=== PATIENT | female | born 1985 | race Caucasian/White ===

== ENCOUNTER 2021-12-06 20:26 | Emergency (ER) | payer OTHER, SELFPAY ==
[2021-12-06 20:30] VITALS: BP 118/91; PULSE 95; RESP 16; TEMP 36.9; O2SAT 100
--- NOTE | 2021-12-06 21:42 | ED.SKABFB ---
HPI - Skin/Abscess/Foreign Bdy General Chief complaint: Skin/Abscess/Foreign Body Stated complaint: skin infection Time Seen by Provider: 12/06/21 20:40 History of Present Illness HPI narrative: 36-year-old female presents the emergency room for evaluation of multiple abscesses that have been present for 4 days. Patient states she used her boyfriend's razor to shave her eyebrows. Patient also used the razor to shave her genitalia, where another abscess is located. Patient states that she attempted to open up the abscesses on her face, which led them to get bigger. States the swelling to her left eye has caused her right eye to close. Related Data Allergies Allergy/AdvReac Type Severity Reaction Status Date / Time Sulfa (Sulfonamide Allergy Unknown Other Verified 01/18/18 17:29 Antibiotics) Review of Systems Review of Systems: CONSTITUTIONAL: Denies fever, chills, or sweats. EYES: Denies visual changes, redness, or discharge. ENT: Denies rhinorrhea, congestion, sore throat, or otalgia. CARDIOVASCULAR: Denies chest pain, palpitations, or edema. RESPIRATORY: Denies cough or dyspnea. GASTROINTESTINAL: Denies abdominal pain, nausea, vomiting, or diarrhea. GENITOURINARY: Denies dysuria or hematuria. SKIN: Reports abscesses to bilateral eyebrows, left inner thigh and genital region MUSCULOSKELETAL: Denies back pain, joint pain, or myalgia. NEUROLOGIC: Denies headache, numbness, dizziness, or weakness. PSYCHIATRIC: Denies anxiety or depression. Exam Narrative: GENERAL: Well-appearing, well-nourished, no physical limitations, and in no acute distress. HEAD: Normocephalic, atraumatic. EYES: Conjunctivae normal, PERRLA and EOMI. ENT: External nose normal, Nares clear, no rhinorrhea or epistaxis. Mucous membranes moist. Oropharynx without tonsillar hypertrophy exudate or other lesions. External ears normal, bilateral TMs normal bilaterally NECK: Supple. No meningeal signs. No adenopathy or masses. No carotid bruits or JVD CHEST: Clear to auscultation. No respiratory distress. No wheezes rales or rhonchi. No tenderness. HEART: Regular rate and rhythm. No murmur heard. Normal peripheral pulses. EXTREMITIES: Normal range of motion. No edema. No clubbing or cyanosis SKIN: Abscess noted to right brow with surrounding erythema mild soft tissue swelling, draining abscess to left brow with significant soft tissue swelling to the periorbital surface. Draining abscesses noted to the left inner thigh and lower back NEURO: No focal deficits. Alert and oriented x3. MAEW. CN's II-XI intact bilaterally, normal gait PSYCH: Cooperative. Normal mood and affect. Course Vital Signs Vital signs: Vital Signs Temperature 36.9 C 12/06/21 20:30 Pulse Rate 95 12/06/21 20:30 Respiratory Rate 16 12/06/21 20:30 Blood Pressure 118/91 H 12/06/21 20:30 Pulse Oximetry 100 12/06/21 20:30 Oxygen Delivery Room Air 12/06/21 20:30 Temperature 36.9 C 12/06/21 20:30 Pulse Rate 95 12/06/21 20:30 Respiratory Rate 16 12/06/21 20:30 Blood Pressure 118/91 H 12/06/21 20:30 Pulse Oximetry 100 12/06/21 20:30 Oxygen Delivery Room Air 12/06/21 20:30 MDM - Skin/Abscess/Foreign Bdy Lab Data Result diagrams: 12/06/21 21:46 Labs: Lab Results 12/06/21 Range/Units 21:46 WBC 6.8 (4.5-10.0) K/mm3 RBC 4.67 (4.2-5.4) M/mm3 Hgb 13.2 (12.0-15.0) g/dL Hct 40.0 (37.0-47.0) % MCV 85.7 (80-100) fl MCH 28.3 (26-34) pg MCHC 33.0 (32-36) g/dl RDW 13.6 (11.5-14.5) % Plt Count 136 L (150-375) k/mm3 MPV 12.7 H (7.4-10.4) fl Immature Gran % (Auto) 0.3 (0-0.5) % Neut % (Auto) 65.2 (45.5-73.1) % Lymph % (Auto) 25.8 (18.3-44.2) % [place] % (Auto) 7.2 (2.6-8.5) % Eos % (Auto) 0.9 (0-4.4) % Baso % (Auto) 0.6 (0.2-1.2) % Lymph # (Auto) 1.75 (0.9-3.2) K/mm3 [place] # (Auto) 0.5 (0.1-0.6) K/mm3 Eos # (Auto) 0.1 (0-0.3) K/mm3 Baso # (Auto) 0.0 (0.0-0.1) K/mm3 Abs Immat G
[2021-12-06 21:54] LABS: Basophils Percent Auto 0.6 % (0.2-1.2); Eosinophils Absolute Auto 0.1 K/mm3 (0-0.3); Eosinophils Percent Auto 0.9 % (0-4.4); Hemoglobin 13.2 g/dL (12.0-15.0); Immature Granulocyte Absolute 0.02 K/mm3 (0.00-0.031); Immature Granulocyte Percent A 0.3 % (0-0.5); Lymphocytes Absolute Auto 1.75 K/mm3 (0.9-3.2); Lymphocytes Percent Auto 25.8 % (18.3-44.2); Mean Corpuscular Hemoglobin 28.3 pg (26-34); Mean Corpuscular Volume 85.7 fl (80-100); Mean Platelet Volume 12.7 fl (7.4-10.4); Monocytes Absolute Auto 0.5 K/mm3 (0.1-0.6); Monocytes Percent Auto 7.2 % (2.6-8.5); Neutrophils Absolute Auto 4.4 K/mm3 (1.3-6.7); Neutrophils Percent Auto 65.2 % (45.5-73.1); Platelet Count Result 136 k/mm3 (150-375); Red Blood Count 4.67 M/mm3 (4.2-5.4); Red Cell Distribution Width 13.6 % (11.5-14.5); White Blood Count 6.8 K/mm3 (4.5-10.0)
[2021-12-06] MEDS: ceFAZolin 2 GM/D5W 50 ML 2 GM/50 ML BAG IVPB (22:02)
[2021-12-06] MEDS: ONDANSETRON INJ 4 MG/2 ML VIAL IV PUSH (22:33)
[2021-12-06] MEDS: KETOROLAC 30 MG/ML VIAL (*BKC) IV PUSH (22:33)
[2021-12-06 23:00] VITALS: BP 114/83; PULSE 74; RESP 16; TEMP 36.4; O2SAT 99
== END 2021-12-06 23:00 | disposition home or self-care (01) ==
PROVIDERS: Emergency Provider Nurse Practitioner Family
DX: L03.211 Cellulitis of face (principal); L03.116 Cellulitis of left lower limb; L03.312 Cellulitis of back [any part except buttock and flank]
CPT/HCPCS: 36415; 85025; 96365; 96375; 99284; J0690; J1885; J2405

== ENCOUNTER 2022-03-09 23:41 | Emergency (ER) | payer OTHER, SELFPAY ==
[2022-03-09 23:47] VITALS: BP 109/59; PULSE 106; RESP 14; TEMP 37; O2SAT 100
[2022-03-10] VITALS (23 sets, daily range): BP systolic 105–124; BP diastolic 47–63; PULSE 87–112; RESP 14–27; O2SAT 97–100
[2022-03-10 02:14] LABS: Basophils Percent Auto 0.3 % (0.2-1.2); Hematocrit 36.8 % (37.0-47.0); Immature Granulocyte Absolute 0.01 K/mm3 (0.00-0.031); Immature Granulocyte Percent A 0.1 % (0-0.5); Lymphocytes Absolute Auto 1.47 K/mm3 (0.9-3.2); Lymphocytes Percent Auto 20.1 % (18.3-44.2); Mean Corpuscular HGB Conc 32.6 g/dl (32-36); Mean Corpuscular Hemoglobin 28.4 pg (26-34); Mean Platelet Volume 12.5 fl (7.4-10.4); Monocytes Absolute Auto 0.8 K/mm3 (0.1-0.6); Neutrophils Percent Auto 68.5 % (45.5-73.1); Platelet Count Result 115 k/mm3 (150-375); Red Blood Count 4.23 M/mm3 (4.2-5.4); Red Cell Distribution Width 13.2 % (11.5-14.5); White Blood Count 7.3 K/mm3 (4.5-10.0)
[2022-03-10] MEDS: SODIUM CHLORIDE 0.9% IV 1,000 ML 999 ML IV CONT (02:20)
--- NOTE | 2022-03-10 02:27 | ED.GENADULT ---
HPI - General Adult General Chief complaint: Wound/Laceration Stated complaint: left leg wound - hx of MRSA infection Time Seen by Provider: 03/10/22 01:37 History of Present Illness HPI narrative: Patient is a 37-year-old female who presents ER with concern of infection to her left lower extremity. She has a scab in the central part of her calf. She has developed redness and warmth going from her knee down to her foot. It is tender to touch. Denies fevers or chills. 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 Patient denies IV drug use or picking at skin that could potentially introduce infection. Related Data Allergies Allergy/AdvReac Type Severity Reaction Status Date / Time Sulfa (Sulfonamide Allergy Unknown Other Verified 03/09/22 23:41 Antibiotics) Review of Systems Review of Systems: All systems reviewed & are unremarkable except as noted in HPI and below Constitutional: Constitutional: Denies chills, Denies fatigue and Denies fever(s) ENT: Denies nasal congestion and Denies sore throat Cardiovascular: Cardiovascular: Denies chest pain, Denies rapid heart rate and Denies radiating jaw, neck or arm pain Respiratory: Respiratory: Denies cough and Denies dyspnea Gastrointestinal: Gastrointestinal: Denies abdominal pain, Denies nausea and Denies vomiting Integumentary/Breasts: Skin/Breast: Reports erythema, Reports rash and Reports skin ulcer PMFSH Past Medical History Medical History (Updated 03/10/22 @ 02:41 by Benjamin Purdy MD) Presence of pancreatic duct stent Surgical History Surgical History (Updated 03/10/22 @ 02:27 by Benjamin Purdy MD) History of section History of cholecystectomy Social History Social History (Updated 03/10/22 @ 02:30 by Benjamin Purdy MD) Smoking status: Current every day smoker Substance use: never Exam Narrative: GENERAL: Well-appearing, well-nourished, and in no acute distress. HEAD: Normocephalic, atraumatic. EYES: PERRL and EOMI. ENT: Mucous membranes moist. CHEST: Clear to auscultation. No respiratory distress. HEART: Regular rate and rhythm. Normal peripheral pulses. ABDOMEN: Soft, nontender, nondistended. EXTREMITIES: Normal range of motion. 2+ edema left lower extremity. SKIN: Warm, dry. Left lower extremity with quarter size scab medial aspect of the calf with surrounding cellulitis from the knee down to the foot. No purulent drainage or fluctuance. NEURO: Alert and oriented x3. PSYCH: Normal mood and affect. Course Course Emergency Course: Discussed case with Keegan ROQUE at [facility]. Will accept for IV abx as our facility lacks beds. Vital Signs Vital signs: Vital Signs Temperature 98.6 F 03/09/22 23:47 Pulse Rate 106 H 03/09/22 23:47 Respiratory Rate 14 03/09/22 23:47 Blood Pressure 109/59 L 03/09/22 23:47 Pulse Oximetry 100 03/09/22 23:47 Oxygen Delivery Room Air 03/09/22 23:47 Temperature 98.6 F 03/09/22 23:47 Pulse Rate 89 03/10/22 02:10 Respiratory Rate 14 03/10/22 02:10 Blood Pressure 113/56 L 03/10/22 02:10 Pulse Oximetry 100 03/10/22 02:10 Oxygen Delivery Room Air 03/09/22 23:47 Medical Decision Making Vital Signs Vital Signs: Vital Signs Temperature 98.6 F 03/09/22 23:47 Pulse Rate 106 H 03/09/22 23:47 Respiratory Rate 14 03/09/22 23:47 Blood Pressure 109/59 L 03/09/22 23:47 Pulse Oximetry 100 03/09/22 23:47 Oxygen Delivery Room Air 03/09/22 23:47 Temperature 98.6 F 03/09/22 23:47 Pulse Rate 89 03/10/22 02:10 Respiratory Rate 14 03/10/22 02:10 Blood Pressure 113/56 L 03/10/22 02:10 Pulse Oximetry 100 03/10/22 02:10 Oxygen Delivery Room Air 03/09/22 23:47 Lab Data 03/10/22 02:08 03/10/22 02:08 Labs: Lab Results 03/10/22 03/10/22 03/10/22 Range/Units 02:08 02:08 02:08 WBC 7.3 (4.5-10.0) K/mm3 RBC 4.23 (4.2-5.4) M/mm3 Hgb 12.0 (12.0-15.0)
[2022-03-10 02:33] LABS: Anion Gap 7 mmol/L (8-16); Blood Urea Nitrogen 15 mg/dL (7-17); Calcium 8.3 mg/dL (8.4-10.2); Carbon Dioxide 30 mmol/L (22-30); Chloride 102 mmol/L (98-107); Estimated CRCL calculation 103 ml/min; Estimated Glomerular Filt Rate > 60; Glucose 106 mg/dL (65-110); Lactic Acid Reflex 1.3 mmol/L (0.7-2.0); Potassium 3.2 mmol/L (3.4-5.0); Sodium 139 mmol/L (137-145)
[2022-03-10] MEDS: MORPHINE SULFATE (*CRX) 4 MG/ML INJ IV PUSH (02:50)
[2022-03-10 03:33] LABS: Influenza A QL RT-PCR Negative (Negative); Influenza B QL RT-PCR Negative (Negative); SARS-CoV-2 RNA PCR Negative
--- NOTE | 2022-03-10 03:47 | PC.NURSE ---
report called to Leilani at [phone]. Patient going to room 205 at [facility]
--- NOTE | 2022-03-10 03:49 | PC.NURSE ---
Informed by unit assembler that [facility] will be here to pick up attendant patient within the hour
== END 2022-03-10 05:04 | disposition critical access hospital (66) ==
PROVIDERS: Emergency Provider Emergency Medicine
DX: L03.116 Cellulitis of left lower limb (principal); F17.200 Nicotine dependence, unspecified, uncomplicated; Z86.14 Personal history of Methicillin resistant Staphylococcus aureus infection; Z96.89 Presence of other specified functional implants
CPT/HCPCS: 36415; 80048; 83605; 85025; 87636; 96365; 96375; 99285; J0690; J2270; J7030

== ENCOUNTER 2022-03-10 05:41 | Observation (INO) | payer OTHER, SELFPAY ==
[2022-03-10 05:58] VITALS: BMI 26.9
[2022-03-10 06:00] VITALS: BP 124/66; PULSE 84; RESP 16; TEMP 36.2; O2SAT 98
--- NOTE | 2022-03-10 06:04 | ADMGEN ---
This patient, Georgette Tan, was admitted to 2nd Floor Room 205-1. Patient/family oriented to hospital policies and general routines including ID bracelet, bed and alarms, visiting hours, pain management, procedures, bathroom and other care routines, personal items, smoking policy, room service/diet, and visiting hours. Information on how to activate the Rapid Response Team has been discussed. Patient/Family are encouraged to report perceived risks to care and to ask questions if they do not understand what they are told or what they should do.
[2022-03-10 09:07] VITALS: BP 99/57; PULSE 16; RESP 16; TEMP 36.6; O2SAT 97
[2022-03-10] MEDS: POTASSIUM CHLORIDE 20 MEQ TABLET 40 MEQ PO (09:10)
[2022-03-10] MEDS: GABAPENTIN 400 MG CAPSULE PO ×3 (09:11→17:19)
[2022-03-10] MEDS: HYDROcodone/acetaminophen (*CRX) 5-325 MG TABLET 1 TAB PO (09:13)
--- NOTE | 2022-03-10 11:36 | P.PNCROSS_ITS ---
Event Note Event Note Event Note: patient has a history of addiction to fentanyl she also has had multiple ulce rs to her lower extremity and history of MRSA. spoke with Infection disease recommend vancomycin and to DC with doxycycline. Patient will be given medication to attempt to prevent withdrawal symptoms.
--- NOTE | 2022-03-10 13:23 | PC.NURSE ---
Patient is lethargic and has slowed responses. VSS WNL. With patient's history of drug abuse, sheet writer is monitoring for substance use.
--- NOTE | 2022-03-10 15:15 | PC.NURSE ---
When toileting patient, contract technical writer observed a 0.5cm round white blister with skin intact, located on patient's upper R thigh. Patient stated that is how the cellulitis area on her L lower leg started. Will continue to monitor.
[2022-03-10 16:00] VITALS: BP 101/64; PULSE 81; RESP 16; TEMP 36.4; O2SAT 99
--- NOTE | 2022-03-10 17:43 | PM.IMHP ---
H&P: HPI History of Present Illness Date/Time: 03/10/22 17:43 Chief Complaint: Left leg pain Narrative: Patient is a 37-year-old female who presents ER with concern of infection to her left lower extremity.? She has a scab in the central part of her calf.? She has developed redness and warmth going from her knee down to her foot.? It is tender to touch.? Denies fevers or chills.? Has history of MRSA infections with rapid spread in the past.? Patient denies IV drug use or picking at skin that could potentially introduce infection.She does admit to addiction to fentanyl on admission patient's vital 98.6, 106, 14, 109/59, 100% on room air, WBC 7.3, hemoglobin 12.0, hematocrit 36.8, 115, sodium 139, potassium 3.2, BUN 15, creatinine 0.60, glucose 106, lactic acid 1.3. Patient will be admitted for IV antibiotic treatment. The patient denies SOB, CP, palpitation, extremity numbness, lightheadedness, dizziness, constipation, diarrhea, chills, or fever. Patient does have tenderness to the affected site with redness. She also has history of MRSA Review of Systems Review of Systems: All systems reviewed & are unremarkable except as noted in HPI and below PMFSH Past Medical History Medical History (Updated 03/11/22 @ 13:33 by Danielle Chaves NP) Presence of pancreatic duct stent Surgical History Surgical History (Updated 03/10/22 @ 02:27 by Benjamin Purdy MD) History of section History of cholecystectomy Social History Social History (Updated 03/10/22 @ 02:30 by Benjamin Purdy MD) Smoking packs per day: 0.5 Smoking cigarettes per day: 10.0 Years smoked: 16 Smoking pack-years: 8.00 Smoking status: Current every day smoker Tobacco type: cigarettes Second hand tobacco smoke exposure: No Alcohol intake: never Substance use: current Substance use type: painkillers Other substance usage details: fentanyl Last use: 03/08/22 Lack of Transportation: No Lack of Food: Never True Current Housing: I Have Housing Concerned About Future Housing: No Difficulty Paying Gas/Electric Bills: No Difficulty Paying for Meds: No Currently Unemployed: No Education: High School Diploma/GED Difficulty w/ Childcare or Family Care: No Spiritual care concerns: No Meds Home Medications and Allergies Home Medications Medication Instructions Recorded Confirmed Type clindamycin HCl 300 mg capsule 300 mg PO Q6H 10 days #40 caps 12/06/21 Rx gabapentin 400 mg capsule 400 mg PO TID 03/10/22 03/10/22 History trazodone 100 mg tablet 100 mg PO HS 03/10/22 03/10/22 History Allergies Allergy/AdvReac Type Severity Reaction Status Date / Time Sulfa (Sulfonamide Allergy Unknown Other Verified 03/09/22 23:41 Antibiotics) Vital Signs Vital Signs - 24 hr 03/10/22 06:00 03/10/22 09:07 03/10/22 16:00 Temperature 97.2 F L 97.9 F 97.5 F L Pulse Rate 84 16 L 81 Respiratory Rate 16 16 16 Blood Pressure 124/66 99/57 L 101/64 Pulse Oximetry 98 97 99 Oxygen Delivery Room Air Room Air Room Air Exam Narrative: GENERAL:Well-appearing, well-nourished, and in no acute distress. HEAD:Normocephalic, atraumatic. EYES: PERRLA ENT: Nares clear, no rhinorrhea or epistaxis. Mucous membranes moist. CHEST: Clear to auscultation. No respiratory distress. HEART: Tachycardic Regular rate and rhythm. Normal peripheral pulses. ABDOMEN: Soft, nontender, nondistended, normal active bowel sounds. EXTREMITIES: Normal range of motion.left leg swollen with erythema noted edema. SKIN: Warm, dry, no rash. NEURO: No focal deficits. Alert and oriented x3. Assessment and Plan Assessment and plan (1) Cellulitis and abscess of left leg: Code(s): L03.116 - Cellulitis of left lower limb; L02.416 - Cutaneous abscess of left lower limb Status: Acute Assessment and Plan: IV antibiotics Monitor for worsening Monitor for sepsis Awaiting cultures results pending Pain medication
[2022-03-10] MEDS: NICOTINE (*PBKC) 21 MG PATCH 1 PATCH TRANSDERM (18:08)
--- NOTE | 2022-03-10 18:12 | PC.NURSE ---
Patient became more alert later in the afternoon, then she had a visit from her boyfriend. Patient is lethargic and slow to respond, and keeps falling asleep in the middle of eating a blizzard from [employer] that was brought in by her boyfriend.
[2022-03-10] MEDS: traZODone HCL 50 MG TABLET 100 MG PO (20:51)
[2022-03-10] MEDS: LORazepam INJ (*CRX) 2 MG/ML VIAL 1 MG IV PUSH (21:01)
[2022-03-11] VITALS: BP 113/62; PULSE 94; RESP 20; TEMP 37.2; O2SAT 98
[2022-03-11 05:32] LABS: Hematocrit 33.2 % (35.0-49.0); Hemoglobin 10.8 g/dL (12.0-15.0); Mean Corpuscular HGB Conc 32.5 g/dL (32.0-36.0); Mean Corpuscular Hemoglobin 28.3 pg (27.0-31.0); Mean Corpuscular Volume 87.1 fL (78.0-102.0); Mean Platelet Volume 12.9 fl (9.2-11.8); Platelet Count Result 114 K/mm3 (150-420); Red Blood Count 3.81 M/mm3 (4.20-5.40); White Blood Count 5.1 K/mm3 (4.8-10.8)
[2022-03-11 05:49] LABS: Alanine Aminotransferase 150 U/L (14-59); Albumin Level 2.7 g/dL (3.4-5.0); Alkaline Phosphatase 134 U/L (46-116); Anion Gap 5 mmol/L (8-16); Aspartate Amino Transferase 55 U/L (15-37); Bilirubin,Total 0.2 mg/dL (0.00-1.00); Blood Urea Nitrogen 11 mg/dL (7-18); Calcium 7.6 mg/dL (8.5-10.1); Carbon Dioxide 29 mmol/L (21-32); Chloride 104 mmol/L (98-108); Estimated CRCL calculation 103 ml/min; Estimated Glomerular Filt Rate > 60; Glucose 111 mg/dL (70-99); Osmolality Calculated 286 mOsm/kg (285-295); Potassium 3.7 mmol/L (3.5-5.1); Sodium 138 mmol/L (136-145); Total Protein 6.3 g/dL (6.4-8.2)
[2022-03-11 08:00] VITALS: BP 95/55; PULSE 84; RESP 12; TEMP 36.4; O2SAT 100
[2022-03-11] MEDS: NICOTINE (*PBKC) 21 MG PATCH 1 PATCH TRANSDERM (09:11)
[2022-03-11] MEDS: GABAPENTIN 400 MG CAPSULE PO ×3 (09:11→17:56)
--- NOTE | 2022-03-11 12:10 | WPDPN ---
Progress Note: A&P Assessment and Plan (1) Cellulitis and abscess of left leg: Code(s): L03.116 - Cellulitis of left lower limb; L02.416 - Cutaneous abscess of left lower limb Status: Acute Assessment and Plan: IV antibiotics Monitor for worsening Monitor for sepsis Awaiting cultures results pending Pain medication as indicated (2) Anemia: Code(s): D64.9 - Anemia, unspecified Status: Acute Assessment and Plan: Monitor lab level will address accordingly (3) Drug use: Code(s): F19.90 - Other psychoactive substance use, unspecified, uncomplicated Status: Acute Assessment and Plan: what his wrist pain accordingly Mindful of addiction (4) Weakness: Code(s): R53.1 - Weakness Status: Acute Assessment and Plan: PT and OT if needed at this time is not indicated (5) At risk for inadequate pain control: Code(s): Z91.89 - Other specified personal risk factors, not elsewhere classified Status: Acute Subjective Date/time seen: 03/11/22 12:10 Interval history: this is a 37-year-old has cellulitis of her left rahman area that has a lot of erythema. Patient has a new area on her right femoral area that is small dime-sized will monitor patient instructed not to pick at the area will keep area clean and dry. Patient continues to act like she is very lethargic or on some strong medications at times hard around patient denies at this time using any recreational drugs patient's labs today white blood count is normal hemoglobin is 10.8 platelet is 114 we will continue with IV antibiotics monitor area. Patient has remained afebrile eating and drinking without any difficulties Exam Narrative: GENERAL:Well-appearing, well-nourished, and in no acute distress. HEAD:Normocephalic, atraumatic. EYES: PERRLA ENT: Nares clear, no rhinorrhea or epistaxis. Mucous membranes moist. CHEST: Clear to auscultation. No respiratory distress. HEART: Tachycardic Regular rate and rhythm. Normal peripheral pulses. ABDOMEN: Soft, nontender, nondistended, normal active bowel sounds. EXTREMITIES: Normal range of motion.left leg swollen with erythema noted edema. SKIN: Warm, dry, no rash. NEURO: No focal deficits. Alert and oriented x3. Objective Data Vital Signs Vital Signs: Vital Signs - 24 hr 03/10/22 16:00 03/11/22 00:00 03/11/22 08:00 Temperature 97.5 F L 98.9 F 97.6 F Pulse Rate 81 94 84 Respiratory Rate 16 20 12 Blood Pressure 101/64 113/62 95/55 L Pulse Oximetry 99 98 100 Oxygen Delivery Room Air Room Air Room Air Intake/Output Intake/Output: Intake & Output 03/08/22 03/09/22 03/10/22 03/11/22 23:59 23:59 23:59 23:59 Intake Total 2480 1270 Output Total 625 Balance 1855 1270 Meds/Results Medications: Active Medications Generic Name Dose Route Start Last Admin Trade Name Freq PRN Reason Stop Dose Admin Acetaminophen 500 mg 03/10/22 06:23 Acetaminophen 500 Mg Tablet PO Q4H PRN Mild Pain (1-3) or Fever Hydrocodone Bitart/Acetaminophen 1 tab 03/10/22 07:34 03/10/22 09:13 Hydrocodone/Acetaminophen (*Crx) 5-325 Mg Tablet PO 1 tab Q6H PRN Administration Pain Rated 7-10 Dicyclomine HCl 20 mg 03/10/22 11:32 Dicyclomine Hcl 10 Mg Capsule PO QID PRN Abdominal Cramping Gabapentin 400 mg 03/10/22 09:00 03/11/22 11:57 Gabapentin 400 Mg Capsule PO 400 mg TID DESIREE Administration Vancomycin HCl 1,250 mg in 250 mls @ 200 mls/hr 03/10/22 12:00 03/11/22 11:55 Vancomycin 1,250 Mg/D5w 250 Ml IVPB 200 mls/hr Q12H DESIREE Administration Lorazepam 1 mg 03/10/22 11:36 03/10/22 21:01 Lorazepam Inj (*Crx) 2 Mg/Ml Vial IV PUSH 1 mg Q4HR PRN Administration Anxiety Methocarbamol 750 mg 03/10/22 11:32 Methocarbamol 750 Mg Tablet PO Q6HR PRN muscle aches Nicotine 1 patch 03/10/22 17:40 03/11/22 09:11 Nicotine (*Pbkc) 21 Mg Patch TRANSDER
[2022-03-11 14:09] LABS: Add Urine Microscopic? YES; Appearance Urine Clear (Clear); Bilirubin Urine Negative (Negative); Blood Urine 1+ (Negative); Color Urine Light Yellow (Yellow); Glucose Urine UA Negative (Negative); Ketones Urine Negative (Negative); Leukocyte Esterase Ur Trace (Negative); Nitrate Urine Negative (Negative); Protein Urine Negative (Negative); Specific Grav Ur 1.015 (1.010-1.020)
[2022-03-11 14:19] LABS: Amphetamine Screen Urine Positive (Negative); Barbiturate Screen Urine Negative (Negative); Benzodiazepines Screen Urine Negative (Negative); Cannabinoid Screen Urine Negative (Negative); Cocaine Screen Urine Negative (Negative); Methadone Screen Urine Negative (Negative); Opiate Screen Urine Positive (Negative); Phencyclidine Screen Urine Negative (Negative)
[2022-03-11 14:32] LABS: Bacteria Urine Trace /hpf; Squamous Epithelial Cell Urine Few /hpf (Few); WBC Urine 0-3 /hpf (0-3)
[2022-03-11 16:00] VITALS: BP 107/57; PULSE 79; RESP 14; TEMP 36.4; O2SAT 100
--- NOTE | 2022-03-11 17:49 | PC.NURSE ---
Patient hit scabbed area while transferring to toilet and knocked it off. Area 1 CM X 1CM with greenish/white thick drainage. Multiple white heads in wound. FOUNDING PARTNER contacted. Cx obtained. Area cleaned and dry dressing applied. Patient stated she would like to be able to transfer to hospital closer to [place] where she lives. Passed request on to Charge Nurse for case coordination and FOUNDING PARTNER.
[2022-03-11] MEDS: traZODone HCL 50 MG TABLET 100 MG PO (22:58)
[2022-03-11] MEDS: LORazepam INJ (*CRX) 2 MG/ML VIAL 1 MG IV PUSH (23:06)
[2022-03-11 23:21] LABS: Vancomycin Trough 5.1 ug/mL (10.0-15.0)
--- NOTE | 2022-03-11 23:27 | PC.NURSE ---
[facility] notified of vanco trough of 5.1. Pharmacy said they will adjust the dose of vancomycin.
[2022-03-11 23:55] VITALS: BP 107/58; PULSE 76; RESP 18; TEMP 36.2; O2SAT 98
--- NOTE | 2022-03-12 05:00 | PC.NURSE ---
Pt refused blood draw and states she is going to a larger hospital with surgery availability. Explained to pt why she needed her blood drawn but she still refused to have her blood drawn.
[2022-03-12 07:40] VITALS: BP 118/63; PULSE 104; RESP 18; TEMP 36.6; O2SAT 98
[2022-03-12] MEDS: GABAPENTIN 400 MG CAPSULE PO ×2 (09:27→17:19)
[2022-03-12] MEDS: NICOTINE (*PBKC) 21 MG PATCH 1 PATCH TRANSDERM (09:27)
--- NOTE | 2022-03-12 12:13 | WPDPN ---
Progress Note: A&P Assessment and Plan (1) Cellulitis and abscess of left leg: Code(s): L03.116 - Cellulitis of left lower limb; L02.416 - Cutaneous abscess of left lower limb Status: Acute Assessment and Plan: IV antibiotics Monitor for worsening Monitor for sepsis Awaiting cultures results pending Pain medication as indicated (2) Anemia: Code(s): D64.9 - Anemia, unspecified Status: Acute Assessment and Plan: Monitor lab level will address accordingly (3) Drug use: Code(s): F19.90 - Other psychoactive substance use, unspecified, uncomplicated Status: Acute Assessment and Plan: what his wrist pain accordingly Mindful of addiction (4) Weakness: Code(s): R53.1 - Weakness Status: Acute Assessment and Plan: PT and OT if needed at this time is not indicated (5) At risk for inadequate pain control: Code(s): Z91.89 - Other specified personal risk factors, not elsewhere classified Status: Acute Subjective Date/time seen: 03/12/22 12:13 Interval history: Patient can barely keep her eyes open. She is lethargic at time and unable to monitor or keep track of the conversation at time. Patient when she did wake up wanted to be transferred so she could be closer to home. I did explain to patient at this we are able to handle her care and we would not have a need to transfer her and if she is wanting to go to the hospital I am not comfortable discharging at this time due to the wound she would need to sign out against medical advise and go to the hospital of her choice although this is not what I am advising for her. Patient leg is still swollen although less than yesterday . Exam Narrative: GENERAL:Well-appearing, well-nourished, and in no acute distress. HEAD:Normocephalic, atraumatic. EYES: PERRLA ENT: Nares clear, no rhinorrhea or epistaxis. Mucous membranes moist. CHEST: Clear to auscultation. No respiratory distress. HEART: Tachycardic Regular rate and rhythm. Normal peripheral pulses. ABDOMEN: Soft, nontender, nondistended, normal active bowel sounds. EXTREMITIES: Normal range of motion.left leg swollen with erythema noted erythema is a lot small although core of cellulitis has small black area noted. SKIN: Warm, dry, no rash. NEURO: No focal deficits. Alert and oriented x3. very lethargic at times Objective Data Vital Signs Vital Signs: Vital Signs - 24 hr 03/11/22 16:00 03/11/22 23:55 03/12/22 07:40 Temperature 97.6 F 97.2 F L 98 F Pulse Rate 79 76 104 H Respiratory Rate 14 18 18 Blood Pressure 107/57 L 107/58 L 118/63 Pulse Oximetry 100 98 98 Oxygen Delivery Room Air Room Air Room Air Intake/Output Intake/Output: Intake & Output 03/09/22 03/10/22 03/11/22 03/12/22 23:59 23:59 23:59 23:59 Intake Total 2480 2847 1550 Output Total 625 1800 600 Balance 1855 1047 950 Meds/Results Medications: Active Medications Generic Name Dose Route Start Last Admin Trade Name Freq PRN Reason Stop Dose Admin Acetaminophen 500 mg 03/10/22 06:23 Acetaminophen 500 Mg Tablet PO Q4H PRN Mild Pain (1-3) or Fever Hydrocodone Bitart/Acetaminophen 1 tab 03/10/22 07:34 03/10/22 09:13 Hydrocodone/Acetaminophen (*Crx) 5-325 Mg Tablet PO 1 tab Q6H PRN Administration Pain Rated 7-10 Dicyclomine HCl 20 mg 03/10/22 11:32 Dicyclomine Hcl 10 Mg Capsule PO QID PRN Abdominal Cramping Gabapentin 400 mg 03/10/22 09:00 03/12/22 09:27 Gabapentin 400 Mg Capsule PO 400 mg TID DESIREE Administration Vancomycin HCl 1,250 mg in 250 mls @ 200 mls/hr 03/12/22 00:00 03/12/22 10:41 Vancomycin 1,250 Mg/D5w 250 Ml IVPB Infused Q8H DESIREE Infusion Lorazepam 1 mg 03/10/22 11:36 03/11/22 23:06 Lorazepam Inj (*Crx) 2 Mg/Ml Vial IV PUSH 1 mg Q4HR PRN Administration Anxiety Methocarbamol 750 mg 03/10/22 11:32 Methocarbamol 750 Mg Tablet PO Q6HR
--- NOTE | 2022-03-12 12:30 | PC.NURSE ---
This nurse accompanied Karri POSADA,PHD and Magdy Moore, Director of Facilities/Security to witness a search of patients for illegal substances or any substance that may be altering patients behavior. Patient has been extremly groggy/sleepy, slurring words at times and having trouble staying awake when nurse speaking to patient. Patient states understanding of search and agrees to search. No illegal substances found. A pack of cigarettes, 2 vapes, a metal container with misc. items and pr specialist confiscated. Karri POSADA witnessed belongings log. Filed in patients chart. Patient visibly upset after search, and the fact she will not be able to have visitors. This nurse consoled patient and reiterated that our goal is to keep patient safe from harm. Patient states understanding and calmed down after several minutes
--- NOTE | 2022-03-12 12:31 | PC.NURSE ---
Concerns brought forward that patient may have drugs/paraphernalia on her person or in room due to erratic behavior and positive UDS. Introduced myself to patient, explaining that we have concerns and explained that we needed to search her room to ensure she didn't have any items that would cause harm. She consented to search. Magdy Moore, Director of Facilities/Security, and ALBINO Fish, accompanied me while a search of the room, belongings, and person was conducted. No illegal substances were found. We did, however, confiscate a pack of cigarettes, manager leadership development, two vaping devices, and a small jar of miscellaneous items, one of which was a small container of colored rocks. I also explained to the patient that we would be restricting all visitors while she is here in the hospital to prevent anyone from bringing her illegal items. She verbalized understanding.
[2022-03-12 16:30] VITALS: BP 103/66; PULSE 81; RESP 18; TEMP 36.6; O2SAT 98
[2022-03-12 23:26] LABS: Estimated CRCL calculation 97 ml/min; Estimated Glomerular Filt Rate > 60
[2022-03-12 23:27] LABS: Vancomycin Trough 15.3 ug/mL (10.0-15.0)
[2022-03-12 23:35] VITALS: BP 112/64; PULSE 94; RESP 16; TEMP 36.7; O2SAT 99
[2022-03-13 07:45] VITALS: BP 104/67; PULSE 80; RESP 16; TEMP 36.6; O2SAT 96
[2022-03-13] MEDS: NICOTINE (*PBKC) 21 MG PATCH 1 PATCH TRANSDERM (09:20)
[2022-03-13] MEDS: GABAPENTIN 400 MG CAPSULE PO ×2 (09:20→12:16)
[2022-03-13 11:04] LABS: Hematocrit 34.3 % (35.0-49.0); Hemoglobin 11.3 g/dL (12.0-15.0); Mean Corpuscular HGB Conc 32.9 g/dL (32.0-36.0); Mean Corpuscular Hemoglobin 28.6 pg (27.0-31.0); Mean Corpuscular Volume 86.8 fL (78.0-102.0); Mean Platelet Volume 12.1 fl (9.2-11.8); Platelet Count Result 136 K/mm3 (150-420); Red Blood Count 3.95 M/mm3 (4.20-5.40); Red Cell Distribution Width 13.1 % (11.6-14.4); White Blood Count 4.7 K/mm3 (4.8-10.8)
[2022-03-13 11:25] LABS: Alanine Aminotransferase 171 U/L (14-59); Albumin Level 2.6 g/dL (3.4-5.0); Alkaline Phosphatase 104 U/L (46-116); Anion Gap 4 mmol/L (8-16); Aspartate Amino Transferase 81 U/L (15-37); Bilirubin,Total 0.3 mg/dL (0.00-1.00); Blood Urea Nitrogen 9 mg/dL (7-18); Calcium 8.3 mg/dL (8.5-10.1); Carbon Dioxide 31 mmol/L (21-32); Chloride 103 mmol/L (98-108); Estimated CRCL calculation 103 ml/min; Estimated Glomerular Filt Rate > 60; Glucose 121 mg/dL (70-99); Osmolality Calculated 285 mOsm/kg (285-295); Potassium 3.5 mmol/L (3.5-5.1); Sodium 138 mmol/L (136-145); Total Protein 6.3 g/dL (6.4-8.2)
[2022-03-13] MEDS: DOXYCYCLINE HYCLATE 100 MG TABLET PO (12:16)
--- NOTE | 2022-03-13 12:18 | PM.DS ---
DS: Admitting Diagnosis Discharge Date 03/13/2022 Admitting Diagnosis cellulitis , acute leg wound DS: Discharge Diagnosis Discharge Diagnosis (1) Cellulitis and abscess of left leg: Code(s): L03.116 - Cellulitis of left lower limb; L02.416 - Cutaneous abscess of left lower limb Status: Acute Assessment and Plan: IV antibiotics Monitor for worsening Monitor for sepsis Awaiting cultures results pending Pain medication as indicated (2) Anemia: Code(s): D64.9 - Anemia, unspecified Status: Acute Assessment and Plan: Monitor lab level will address accordingly (3) Drug use: Code(s): F19.90 - Other psychoactive substance use, unspecified, uncomplicated Status: Acute Assessment and Plan: what his wrist pain accordingly Mindful of addiction (4) Weakness: Code(s): R53.1 - Weakness Status: Acute Assessment and Plan: PT and OT if needed at this time is not indicated (5) At risk for inadequate pain control: Code(s): Z91.89 - Other specified personal risk factors, not elsewhere classified Status: Acute DS: Summary Hospital Course Reason for hospitalization: cellulitis of left leg wound Hospital Course: this is a 37-year-old who has cellulitis of the left leg she had multiple cellulitis areas this 1 upon arrival was erythemic warm to touch and painful the left leg was swollen and she has failed outpatient antibiotics. Patient's wound culture came back Staph coccus aureus she was on IV vancomycin she was treated with IV fluids pain medication after called full days patient's wound had decreased significantly swelling had decreased. Patient was then started on oral clindamycin which she will go home with follow-up with her primary care provider patient has been instructed on how to care for her wound upon discharge patient's labs were potassium 3.5, sodium 138, BUN 9, creatinine 0.65, glucose 121, RBCs 3.95, WBCs 4.7, hemoglobin 11.3, hematocrit 34 0.3 and platelets 136 Time Spent with Patient Time attestation: Total time spent providing and/or coordinating discharge services: Exam Narrative: GENERAL:Well-appearing, well-nourished, and in no acute distress. HEAD:Normocephalic, atraumatic. EYES: PERRLA ENT: Nares clear, no rhinorrhea or epistaxis. Mucous membranes moist. CHEST: Clear to auscultation. No respiratory distress. HEART: Tachycardic Regular rate and rhythm. Normal peripheral pulses. ABDOMEN: Soft, nontender, nondistended, normal active bowel sounds. EXTREMITIES: Normal range of motion.left leg swollen with erythema noted erythema is a lot small although core of cellulitis has small black area noted. SKIN: Warm, dry, no rash. NEURO: No focal deficits. Alert and oriented x3. very lethargic at times DS: Data Data Completed and Pending Labs on day of discharge: Labs from last 24 hours 03/13/22 03/13/22 03/12/22 10:37 10:37 23:09 WBC 4.7 L RBC 3.95 L Hgb 11.3 L Hct 34.3 L MCV 86.8 MCH 28.6 MCHC 32.9 RDW 13.1 Plt Count 136 L MPV 12.1 H Sodium 138 Potassium 3.5 Chloride 103 Carbon Dioxide 31 Anion Gap 4 L BUN 9 Creatinine 0.65 Estim Creat Clear Calc 103 Estimated GFR > 60 Glucose 121 H Calculated Osmolality 285 Calcium 8.3 L Total Bilirubin 0.3 AST 81 H ALT 171 H Alkaline Phosphatase 104 Total Protein 6.3 L Albumin 2.6 L Vancomycin Trough 15.3 H 03/12/22 23:09 WBC RBC Hgb Hct MCV MCH MCHC RDW Plt Count MPV Sodium Potassium Chloride Carbon Dioxide Anion Gap BUN Creatinine 0.70 Estim Creat Clear Calc 97 Estimated GFR > 60 Glucose Calculated Osmolality Calcium Total Bilirubin AST ALT Alkaline Phosphatase Total Protein Albumin Vancomycin Trough Preliminary micro results at discharge 03/11/22 18:01 Wound Culture - Preliminary Leg Left 03/10/22 18
--- NOTE | 2022-03-13 16:20 | PC.NURSE ---
Patient discharging home. IV site removed, tip intact. Dressing applied to site, patient tolerated well. All belongings gathered together and sent home with patient. Belongs taken from patient during room search returned to patient. All discharge instructions and education reviewed with patient. Instructions on how to change dressing given for wound to left leg. Patient states understanding. Patient taken down via wheelchair by this nurse to front door. Left via private vehicle with .
--- NOTE | 2022-03-18 09:35 | PC.NURSE ---
Pt states she received and understood her discharge instructions. Pt has no other comments.
== END 2022-03-13 16:20 | disposition home or self-care (01) ==
PROVIDERS: Nurse Practitioner; Admitting Provider Internal Medicine; Visit Provider Nurse Practitioner Family
DX: L03.116 Cellulitis of left lower limb (principal); L02.416 Cutaneous abscess of left lower limb; D64.9 Anemia, unspecified; F17.210 Nicotine dependence, cigarettes, uncomplicated; F11.20 Opioid dependence, uncomplicated; Z90.49 Acquired absence of other specified parts of digestive tract; B95.62 Methicillin resistant Staphylococcus aureus infection as the cause of diseases classified elsewhere
CPT/HCPCS: 36415; 80053; 80202; 80307; 81001; 82565; 85027; 87040; 87070; 87147; 87186; 87205; 96365; 96366; 96367; 96375; A9270; G0378; G0379; J0690; J2060; J3370

== ENCOUNTER 2022-12-05 23:12 | Emergency (ER) | payer OTHER, SELFPAY ==
[2022-12-05 23:21] VITALS: BP 116/63; PULSE 75; RESP 15; TEMP 36.7; O2SAT 100
[2022-12-06 02:08] VITALS: BP 109/65; PULSE 65; RESP 15; TEMP 36.9; O2SAT 100
--- NOTE | 2022-12-06 02:49 | ED.GENADULT ---
HPI - General Adult General Chief complaint: Skin/Abscess/Foreign Body Stated complaint: rash on arm Time Seen by Provider: 12/06/22 02:15 History of Present Illness HPI narrative: Patient 37-year-old female who presents the emergency department with chief complaint of rash to left upper extremity. Patient reports that she was outside working may have been exposed to some poison sum[place] and reports that she had itching and small vesicles that appeared on her left forearm patient states that on the radial aspect of the arm reports that it initially itched and now it thakkar. Patient reports that she also has been having pain in her back that causes discomfort in her shoulders patient states has been ongoing for some time she seen her primary care provider and was set up for physical therapy but has not started her physical therapy yet. Related Data Home Medications Medication Instructions Recorded Confirmed gabapentin 400 mg capsule 400 mg PO TID 03/10/22 03/10/22 trazodone 100 mg tablet 100 mg PO HS 03/10/22 03/10/22 Allergies Allergy/AdvReac Type Severity Reaction Status Date / Time Sulfa (Sulfonamide Allergy Unknown Other Verified 06/17/22 12:18 Antibiotics) Review of Systems Review of Systems: A 10 system review of systems was completed on the patient and is negative except for what is stated in the HPI. Nursing and ancillary documentation was reviewed. [facility] Past Medical History Medical History Presence of pancreatic duct stent Surgical History Surgical History History of section History of cholecystectomy Social History Social History Smoking packs per day: 0.5 Smoking cigarettes per day: 10.0 Years smoked: 16 Smoking pack-years: 8.00 Smoking status: Current every day smoker Tobacco type: cigarettes Second hand tobacco smoke exposure: No Alcohol intake: never Substance use: current Substance use type: painkillers Other substance usage details: fentanyl Last use: 03/08/22 Lack of Transportation: No Lack of Food: Never True Current Housing: I Have Housing Concerned About Future Housing: No Difficulty Paying Gas/Electric Bills: No Difficulty Paying for Meds: No Currently Unemployed: No Education: High School Diploma/GED Difficulty w/ Childcare or Family Care: No Spiritual care concerns: No Exam Narrative: GENERAL: Well-appearing, well-nourished, and in no acute distress. HEAD: Normocephalic, atraumatic. EYES: PERRLA and EOMI. ENT: Nares clear, no rhinorrhea or epistaxis. Mucous membranes moist. NECK: Supple. CHEST: Clear to auscultation. No respiratory distress. HEART: Regular rate and rhythm. No murmur heard. Normal peripheral pulses. ABDOMEN: Soft, nontender, nondistended, normal active bowel sounds. EXTREMITIES: Normal range of motion. No edema. SKIN: Warm, dry, contact dermatitis appearing rash to the distal left forearm on the radial aspect. NEURO: No focal deficits. Alert and oriented x3. PSYCH: Normal mood and affect. Course Vital Signs Vital signs: Vital Signs Temperature 36.7 C 12/05/22 23:21 Pulse Rate 75 12/05/22 23:21 Respiratory Rate 15 12/05/22 23:21 Blood Pressure 116/63 12/05/22 23:21 Pulse Oximetry 100 12/05/22 23:21 Oxygen Delivery Room Air 12/05/22 23:21 Temperature 36.9 C 12/06/22 02:08 Pulse Rate 65 12/06/22 02:08 Respiratory Rate 15 12/06/22 02:08 Blood Pressure 109/65 12/06/22 02:08 Pulse Oximetry 100 12/06/22 02:08 Oxygen Delivery Room Air 12/05/22 23:21 Medical Decision Making Vital Signs Vital Signs: Vital Signs Temperature 36.7 C 12/05/22 23:21 Pulse Rate 75 12/05/22 23:21 Respiratory Rate 15 12/05/22 23:21 Blood Pressure 116/63 12/05/22 23
[2022-12-06] MEDS: KETOROLAC 30 MG/ML VIAL (*BKC) IM (02:50)
[2022-12-06 03:21] VITALS: BP 101/61; PULSE 80; RESP 15; TEMP 36.8; O2SAT 100
== END 2022-12-06 03:22 | disposition home or self-care (01) ==
PROVIDERS: Emergency Provider Emergency Medicine
DX: L30.9 Dermatitis, unspecified (principal); F17.210 Nicotine dependence, cigarettes, uncomplicated
CPT/HCPCS: 96372; 99284; J1100; J1885

== ENCOUNTER 2023-06-03 04:14 | Emergency (ER) | payer OTHER, SELFPAY ==
--- NOTE | ~2023-06-03 | XR_ITS ---
Portable chest x-ray Comparison: 01/18/2018 Clinical History: Fever Findings: Mild patchy bibasilar hazy airspace disease. No pleural effusion or pneumothorax. Cardiom ediastinal silhouette is stable. Bones and soft tissues are unremarkable. Impression: Mild patchy bibasilar airspace disease. Correlate for pulmonary edema/atelectasis versus pneumonia. Reviewed, dictated and finalized at [facility]. Impression: Mild patchy bibasilar airspace disease. Correlate for pulmonary edema/atelectas is versus pneumonia.
[2023-06-03 04:23] VITALS: BP 105/73; PULSE 68; RESP 16; TEMP 36.6; O2SAT 100
[2023-06-03 04:24] VITALS: O2SAT 100
[2023-06-03 04:53] VITALS: PULSE 81
[2023-06-03 04:54] LABS: Basophils Percent Auto 0.3 % (0.2-1.2); Eosinophils Absolute Auto 0.1 K/mm3 (0-0.3); Eosinophils Percent Auto 0.7 % (0-4.4); Hematocrit 40.7 % (37.0-47.0); Hemoglobin 13.2 g/dL (12.0-15.0); Immature Granulocyte Absolute 0.06 K/mm3 (0.00-0.031); Immature Granulocyte Percent A 0.5 % (0-0.5); Lymphocytes Absolute Auto 1.82 K/mm3 (0.9-3.2); Lymphocytes Percent Auto 15.3 % (18.3-44.2); Mean Corpuscular HGB Conc 32.4 g/dl (32-36); Mean Corpuscular Volume 86.4 fl (80-100); Mean Platelet Volume 12.2 fl (7.4-10.4); Monocytes Absolute Auto 1.1 K/mm3 (0.1-0.6); Monocytes Percent Auto 9.1 % (2.6-8.5); Neutrophils Absolute Auto 8.8 K/mm3 (1.3-6.7); Neutrophils Percent Auto 74.1 % (45.5-73.1); Platelet Count Result 135 k/mm3 (150-375); Red Blood Count 4.71 M/mm3 (4.2-5.4); Red Cell Distribution Width 13.2 % (11.5-14.5); White Blood Count 11.9 K/mm3 (4.5-10.0)
--- NOTE | 2023-06-03 04:55 | ED.GENADULT ---
HPI - General Adult General Chief complaint: Upper Respiratory Infection Stated complaint: Fever, Body Aches, Weakness Time Seen by Provider: 06/03/23 04:20 History of Present Illness HPI narrative: this is a 38-year-old female presenting ED with chief complaint of flu-like symptoms for 6 days. She has had headache, body aches, fevers and chest congestion. 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 Daily fentanyl, occasional meth. Last use was earlier this evening. Related Data Home Medications Medication Instructions Recorded Confirmed gabapentin 400 mg capsule 400 mg PO TID 03/10/22 03/10/22 trazodone 100 mg tablet 100 mg PO HS 03/10/22 03/10/22 Allergies Allergy/AdvReac Type Severity Reaction Status Date / Time Sulfa (Sulfonamide Allergy Unknown Other Verified 06/17/22 12:18 Antibiotics) PMFSH Past Medical History Medical History Presence of pancreatic duct stent Surgical History Surgical History History of section History of cholecystectomy Social History Social History Smoking packs per day: 0.5 Smoking cigarettes per day: 10.0 Years smoked: 16 Smoking pack-years: 8.00 Smoking status: Current every day smoker Tobacco type: cigarettes Second hand tobacco smoke exposure: No Alcohol intake: never Substance use: current Substance use type: painkillers Other substance usage details: fentanyl Last use: 03/08/22 Lack of Transportation: No Lack of Food: Never True Current Housing: I Have Housing Concerned About Future Housing: No Difficulty Paying Gas/Electric Bills: No Difficulty Paying for Meds: No Currently Unemployed: No Education: High School Diploma/GED Difficulty w/ Childcare or Family Care: No Spiritual care concerns: No Exam Narrative: APPEARANCE: Patient is uncomfortable. Head: atraumatic. EYES: EOMI, NOSE: Atraumatic NECK: Trachea midline RESPIRATORY: No increased rate of breathing, speaking in full sentences, scattered wheezes in the bases CARDIOVASCULAR: RRR, no peripheral edema ABDOMINAL: Non-distended, soft nontender MUSCULOSKELETAl: No obvious deformities NEURO: Alert. Moving 4/4 extremities SKIN:: multiple sores on the patient's face PSYCHIATRIC: Normal affect Course Vital Signs Vital signs: Vital Signs Temperature 98 F 06/03/23 04:23 Pulse Rate 68 06/03/23 04:23 Respiratory Rate 16 06/03/23 04:23 Blood Pressure 105/73 06/03/23 04:23 Pulse Oximetry 100 06/03/23 04:23 Temperature 98 F 06/03/23 04:23 Pulse Rate 81 06/03/23 04:53 Respiratory Rate 16 06/03/23 04:23 Blood Pressure 105/73 06/03/23 04:23 Pulse Oximetry 100 06/03/23 04:24 Oxygen Delivery Room Air 06/03/23 04:24 Medical Decision Making MDM Narrative Medical decision making narrative: -Course: 38-year-old female presenting with flu-like symptoms x6 days. Mild wheezing in the lung bases with atelectasis versus infiltrates in bilateral lung bases. Patient is high risk for pneumonia given drug use. Patient be treated for community-acquired pneumonia. vital signs stable not requiring supplemental oxygen at this time. Patient discharged with primary care follow-up. -DDX includes but is not limited to: viral illness , pneumonia, sepsis, dehydration, bacteremia, endocarditis -Co-morbidities complicating care: fentanyl and methenamine use -Social determinants of health unemployed, lives with her boyfriend, fentanyl and methamphetamine use -Independent interpretation of studies: white count 11.9. Chest x-ray showed bibasilar infiltrates versus atelectasis. -Interventions: Augmentin, doxycycline, Motrin, Tylenol -Shared decision making / Disposition: discharge -RX Augmentin, doxycycline Vital Signs Vital Signs: Vital Signs Temperature 98 F
[2023-06-03 05:01] LABS: Influenza A QL RT-PCR Negative (Negative); Influenza B QL RT-PCR Negative (Negative); RSV RNA, RT-PCR Negative (Negative); SARS-CoV-2 RNA PCR Negative (Negative)
[2023-06-03 05:04] LABS: Alanine Aminotransferase 100 U/L (6-35); Albumin Level 4.2 g/dL (3.5-5.1); Alkaline Phosphatase 104 U/L (38-126); Anion Gap 7 mmol/L (8-16); Aspartate Amino Transferase 44 U/L (14-36); Blood Urea Nitrogen 10 mg/dL (7-17); Calcium 9.2 mg/dL (8.4-10.2); Carbon Dioxide 29 mmol/L (22-30); Chloride 100 mmol/L (98-107); Estimated CRCL calculation 110 ml/min; Estimated Glomerular Filt Rate > 60; Glucose 111 mg/dL (65-110); Potassium 3.8 mmol/L (3.4-5.0); Sodium 136 mmol/L (137-145)
[2023-06-03] MEDS: ACETAMINOPHEN 500 MG TABLET 1000 MG PO (05:23)
[2023-06-03] MEDS: AMOXICILLIN/CLAVULANATE K 875-125 MG TAB 1 TABLET PO (05:23)
[2023-06-03] MEDS: DOXYCYCLINE HYCLATE 100 MG TABLET PO (05:23)
[2023-06-03] MEDS: IBUPROFEN 400 MG TABLET 800 MG PO (05:23)
== END 2023-06-03 05:26 | disposition home or self-care (01) ==
PROVIDERS: Emergency Provider Emergency Medicine
DX: J15.9 Unspecified bacterial pneumonia (principal); Z20.822 Contact with and (suspected) exposure to COVID-19; F17.210 Nicotine dependence, cigarettes, uncomplicated; Z90.49 Acquired absence of other specified parts of digestive tract; Z96.89 Presence of other specified functional implants
CPT/HCPCS: 36415; 71045; 80053; 81025; 85025; 87637; 99284; A9270